=== PATIENT | female | born 1980 | race Caucasian/White ===

== ENCOUNTER → 2020-11-23 | Outpatient (CLI) | payer OTHER | LOC: KOH-I 13:00 | DX: M25.571 Pain in right ankle and joints of right foot (principal); Z96.651 Presence of right artificial knee joint | CPT/HCPCS: 73700 ==

== ENCOUNTER → 2021-03-14 | Outpatient (CLI) | payer OTHER | LOC: KOH-I 15:30 | DX: S82.891A Other fracture of right lower leg, initial encounter for closed fracture (principal); Z47.89 Encounter for other orthopedic aftercare | CPT/HCPCS: 73610 ==

== ENCOUNTER → 2022-08-07 | Outpatient (CLI) | payer OTHER | LOC: KOH-I 09:25 | DX: M25.571 Pain in right ankle and joints of right foot (principal); M19.071 Primary osteoarthritis, right ankle and foot; Z96.661 Presence of right artificial ankle joint; M24.071 Loose body in right ankle; M77.51 Other enthesopathy of right foot and ankle | CPT/HCPCS: 73610 ==